=== PATIENT | female | born 1935 | race Caucasian/White ===

== ENCOUNTER → 2024-01-05 14:14 | Outpatient (REF) | payer OTHER, SELFPAY | LOC: RCS 14:14 | PROVIDERS: ATTENDING PHYSICIAN Internal Medicine; FAMILY PHYSICIAN Internal Medicine | DX: R06.09 Other forms of dyspnea (principal); I10 Essential (primary) hypertension; I45.4 Nonspecific intraventricular block | CPT/HCPCS: 93306 ==